=== PATIENT | male | born 1955 | race Caucasian/White ===

== ENCOUNTER 2017-08-02 09:37 | Day surgery (SDC) | payer BC ==
[~2017-08-02 09:37] MED LIST: LIDOCAINE HCL 1% MPF SOL ONE; PROPOFOL 500 MG/50 ML EMU IV ONE
[2017-08-02 14:34] VITALS: BP 135/89; PULSE 70; RESP 20; TEMP 97.4; O2SAT 98
== END 2017-08-02 15:08 | disposition home or self-care (01) ==
LOC: SURG 09:37
PROVIDERS: ATTEND Surgery
DX: Z12.11 Encounter for screening for malignant neoplasm of colon (principal); Z86.010 Personal history of colon polyps; K57.30 Diverticulosis of large intestine without perforation or abscess without bleeding; D12.3 Benign neoplasm of transverse colon
CPT/HCPCS: 45385; 99001; J2001; J2704

== ENCOUNTER 2017-12-23 11:36 | Emergency (ER) | payer BC ==
[2017-12-23 12:41] LABS: APPEARANCE,URINE Clear; BILIRUBIN,URINE NEGATIVE (NEGATIVE); COLOR,URINE Light yellow; GLUCOSE, URINE (UA) NEGATIVE (NEGATIVE); KETONES,URINE NEGATIVE (NEGATIVE); LEUKOCYTE ESTERASE ,URINE NEGATIVE (NEGATIVE); NITRATE,URINE NEGATIVE (NEGATIVE); OCCULT BLOOD,URINE TRACE INTACT (NEG-TRACE); PH,URINE 7.5; UROBILINOGEN,URINE 0.2 (0.2-1.0 EU)
[2017-12-23] MEDS ORDERED: AMLODIPINE 5 MG TAB PO ONE (13:07)
[2017-12-23 13:13] LABS: RBC,URINE NEGATIVE (0-3AV/HPF); WBC,URINE NEGATIVE (0-5AV/HPF)
[2017-12-23] MEDS ORDERED: AMLODIPINE 5 MG TAB ONE (13:17)
[2017-12-23 13:35] LABS: BASOPHILS % (AUTO) 1 % (0-3); EOSINOPHILS % (AUTO) 3 % (0-9); HEMATOCRIT 42 % (39-53); MEAN CORPUSCULAR HGB CONC 33.8 gm/dl (32.0-36.0); MEAN CORPUSCULAR VOLUME 91 fL (80-100); MONOCYTES % (AUTO) 10.6 % (0-12); NEUTROPHILS % (AUTO) 70.5 % (37-80)
[2017-12-23 13:42] VITALS: RESP 22
[2017-12-23 13:43] LABS: CALCIUM 9.2 mg/dl (8.5-10.1); POTASSIUM 4.2 mMol/L (3.5-5.1)
[2017-12-23 13:44] VITALS: PULSE 90; TEMP 98.3; O2SAT 99
[2017-12-23 14:31] VITALS: BP 136/98
== END 2017-12-23 14:30 | disposition home or self-care (01) ==
LOC: ED 11:36
DX: J18.1 Lobar pneumonia, unspecified organism (principal)
CPT/HCPCS: 36415; 51798; 71046; 80048; 81001; 85025; 87040; 99284; A9270-GY

== ENCOUNTER 2018-06-02 00:30 | Emergency (ER) | payer BC ==
[2018-06-02 00:43] VITALS: RESP 20; TEMP 97.4; O2SAT 96
[2018-06-02 01:59] LABS: HEMATOCRIT 36 % (39-53); HEMOGLOBIN 12.7 gm/dl (13.5-17.7); MEAN CORPUSCULAR HEMOGLOBIN 31.6 pg (27.0-32.0); MEAN CORPUSCULAR HGB CONC 35.3 gm/dl (32.0-36.0); MEAN CORPUSCULAR VOLUME 89 fL (80-100)
[2018-06-02 02:04] LABS: ALBUMIN 3.9 gm/dl (3.4-5.0); ALKALINE PHOSPHATASE 126 IU/L (46-116); ALT 28 IU/L (14-63); AST 22 IU/L (15-37); BILIRUBIN,TOTAL 0.5 mg/dl (0.2-1.0); BLOOD UREA NITROGEN 15 mg/dl (7-18); CALCIUM 8.9 mg/dl (8.5-10.1); CARBON DIOXIDE 27.8 mEq/L (21-32); CHLORIDE 104 mMol/L (98-107); CREATINE KINASE 213 U/L (39-308); GLOM FILT RATE 68 mL/min (>60); GLUCOSE 109 mg/dl (74-106); POTASSIUM 3.7 mMol/L (3.5-5.1); SODIUM 140 mMol/L (136-145); TOTAL PROTEIN 7.3 gm/dl (6.4-8.2); TROP I < 0.017 ng/ml (0.000-0.056)
[2018-06-02 02:47] VITALS: BP 126/91; PULSE 89
== END 2018-06-02 02:40 | disposition home or self-care (01) ==
LOC: ED 00:30
DX: R07.9 Chest pain, unspecified (principal)
CPT/HCPCS: 36415; 80053; 82550; 84484; 85025; 85027; 85378; 99282